=== PATIENT | male | born 1945 | race Caucasian/White ===

== ENCOUNTER 2023-05-03 06:23 | Day surgery (SDC) | payer OTHER, SELFPAY ==
--- NOTE | 2023-05-02 12:28 | HO.ANESPROP2 ---
HPI - Anesthesia Eval Consult details Narrative: 78yo M for Colonoscopy PMFSH Past Medical History Medical History GERD (gastroesophageal reflux disease) Hx of pulmonary fibrosis Interstitial lung disease PVCs (premature ventricular contractions) Surgical History Surgical History H/O colonoscopy Hx of total knee replacement Social History Social History Patient Tobacco Use Status: Former Tobacco user Are you DNR?: No Advance Directives: No Advance Directives Information Provided: Yes Meds Allergies Allergy/AdvReac Type Severity Reaction Status Date / Time No Known Allergies Allergy Verified 05/02/23 07:11 Home Medications Medication Instructions Recorded Confirmed Last Taken Type Cinnamon 05/02/23 Unknown History Imodium A-D 05/02/23 Unknown History fluocinonide 0.05 % topical topical 05/02/23 05/02/23 Unknown History ointment magnesium 200 mg tablet mg 05/02/23 05/02/23 Unknown History nintedanib 150 mg capsule (Ofev) mg PO 05/02/23 Unknown History omeprazole 20 mg capsule,delayed 20 mg PO DAILY 05/02/23 05/02/23 Unknown History release sotalol 80 mg tablet 80 mg PO DAILY 05/02/23 05/02/23 Unknown History zinc 05/02/23 Unknown History Exam Exam Date and Time: May 02, 2023 122 Assessment and Plan Assessment Anesthesia Assessment: Chart Reviewed
[2023-05-03 06:32] VITALS: BP 142/89; PULSE 74; RESP 18; TEMP 36.4; O2SAT 98
[2023-05-03] MEDS: Lactated Ringers 1,000 ML 100 ML IVCONT (06:54)
--- NOTE | 2023-05-03 07:38 | P.HPSUR_ITS ---
Pre-Procedural Eval Section A Date of Service: 05/03/23 Section B Chief Complaint: Encounter for screening for malignant neoplasm of Details of Present Illness: see h&p no changes Relevant Family History (Specify if Yes): No Relevant Social History: None Present Medications: see Short Stay Collaborative assessment Medical History: No relevant PMH History of Previous Operations: No relevant previous surgery Allergies: Allergies Allergy/AdvReac Type Severity Reaction Status Date / Time No Known Allergies Allergy Verified 05/02/23 07:11 Review of Systems Sugical H&P ROS: Negative: Constitution, Cardiovascular, Respiratory, Neurolo gical, Psychiatric, Hem-Onc, Allergic/Immunologic, Gastrointestinal, Genitourinary, Musculoskeletal, Integumentary, Endocrine and Eyes/Ears/Nose/Throat Exam Surgical H&P Exam: Normal: HEENT, Normal: Heart, Normal: Lungs, Normal: Extremities, Normal: Abdomen, Normal: Skin and Normal: Neurological Plan Diagnosis/Plan: Unchanged I have reviewed the history and physical and performed a pertinent physical examination on my patient. No changes have occurred unless specified. Time Spent With Patient Time: Total time managing care of this patient today ____ minutes.
--- NOTE | 2023-05-03 08:03 | HE.ANESPSPN ---
Anesthesia Pain Service Progress Note Assessment: Patient seen and evaluated during pain rounds. Pain control reported as [ ].
--- NOTE | 2023-05-03 08:03 | HO.ANESPROP2 ---
[facility] Past Medical History Medical History GERD (gastroesophageal reflux disease) Hx of pulmonary fibrosis Interstitial lung disease PVCs (premature ventricular contractions) Functional capacity: independent ambulation Surgical History Surgical History H/O colonoscopy Hx of total knee replacement Social History Social History Patient Tobacco Use Status: Former Tobacco user Are you DNR?: No Advance Directives: No Advance Directives Information Provided: Yes Meds Allergies Allergy/AdvReac Type Severity Reaction Status Date / Time No Known Allergies Allergy Verified 05/02/23 07:11 Active Medications: Current Medications Lactated Ringer's (Lr) 1,000 mls @ 100 mls/hr IVCONT .Q10H DANY Last Admin: 05/03/23 06:54 Dose: 100 mls/hr Home Medications Medication Instructions Recorded Confirmed Last Taken Type Cinnamon 05/02/23 Unknown History Imodium A-D 05/02/23 Unknown History fluocinonide 0.05 % topical topical 05/02/23 05/02/23 Unknown History ointment magnesium 200 mg tablet mg 05/02/23 05/02/23 Unknown History nintedanib 150 mg capsule (Ofev) mg PO 05/02/23 Unknown History omeprazole 20 mg capsule,delayed 20 mg PO DAILY 05/02/23 05/02/23 Unknown History release sotalol 80 mg tablet 80 mg PO DAILY 05/02/23 05/02/23 Unknown History zinc 05/02/23 Unknown History Exam Exam Date and Time: May 03, 2023 0803 Height,Weight and Vital Signs: Height 265 ft Weight 120.514 kg Last Vital Signs Temp 97.5 F 05/03/23 06:32 Pulse 74 05/03/23 06:32 Resp 18 05/03/23 06:32 BP 142/89 H 05/03/23 06:32 Pulse Ox 98 05/03/23 06:32 O2 Del Method Room Air 05/03/23 06:32 Airway Mallampati Class: III TM Dist: >3cm Neck ROM: Full Heart: RRR Lungs: CTA Assessment and Plan Final Anesthetic Review ASA Class: III Final Preanesthetic Review: Meds/Allgs Chart Reviewed, Consent Obtained/Reviewed and Anes Risks/Benef Reviewed Patient Risk: Low Procedure Risk: Low Anesthetic Plan Anesthetic Plan: MAC: Disposition: Standard PACU
[2023-05-03 08:06] VITALS: BP 106/64; PULSE 75; RESP 16; TEMP 36.4; O2SAT 94
--- NOTE | 2023-05-03 08:13 | PM.OP ---
Brief Operative Note Date of Service: 05/03/23 Pre-op diagnosis: screening Post-op diagnosis: same Procedure: colonoscopy Surgeon: Kameron Tellez Anesthesia: MAC Was an [employer] used for this Procedure?: No Estimated blood loss (mL): 0 Pathology: none sent Condition: stable Disposition: PACU
[2023-05-03 08:21] VITALS: BP 125/74; PULSE 62; RESP 16; O2SAT 94
[2023-05-03 08:27] VITALS: BMI 37.0
[2023-05-03 08:36] VITALS: BP 149/94; PULSE 70; RESP 16; TEMP 36.1; O2SAT 98
--- NOTE | 2023-05-03 09:12 | OP_ITS ---
DATE OF SERVICE: 05/03/2023 SURGEON: Kameron Tellez MD INDICATIONS: Colon cancer screening and prior history of adenomatous colon polyps. PREOPERATIVE DIAGNOSIS: POSTOPERATIVE DIAGNOSIS: PROCEDURE PERFORMED: Colonoscopy to the terminal ileum. ESTIMATED BLOOD LOSS: COMPLICATIONS: ANESTHESIA: Monitored anesthesia care. ASSISTANTS: SPECIMENS: DESCRIPTION OF PROCEDURE: A history and physical was performed. The risks and benefits of the procedure were explained to the patient. Informed consent was obtained. The patient was placed in the left lateral decubitus position. A digital rectal exam was performed and was found to be normal. The Olympus pediatric video colonoscope was introduced into the rectum and advanced to the cecum. The cecum was identified by transillumination, palpation, and identification of the ileocecal valve. Examination was performed. The scope was removed. He tolerated the procedure well and was returned to the recovery area in stable condition. FINDINGS: The terminal ileum was examined and appeared normal. The visualized colonic mucosa was within normal limits without evidence of masses or ulcers. No polyps were identified. The quality of the prep was good. Retroflex examination showed moderately large internal hemorrhoids. IMPRESSION: Normal colonoscopy. RECOMMENDATION: 1. Follow up as needed. 2. Repeat colonoscopy is optional based on the patient's age. MD HECTOR Yin/ARTURL / [id number]
--- NOTE | 2023-05-03 10:18 | HO.POSTANES ---
Post Anesthesia Evaluation Post Anesthesia Evaluation Date of Service: 05/03/23 Vital Signs: Vital Signs Temp Pulse Resp BP Pulse Ox O2 Del Method 05/03/23 08:36 97.0 F 70 16 149/94 H 98 Room Air 05/03/23 08:21 62 16 125/74 94 Room Air 05/03/23 08:06 97.6 F 75 16 106/64 94 Room Air 05/03/23 06:32 97.5 F 74 18 142/89 H 98 Room Air Mental Status: Awake Pain Control: Satisfactory Nausea/Vomiting: None Hydration: Adequate Anesthesia-Related Issues: No Anes. Related Issues
== END 2023-05-03 08:47 | disposition home or self-care (01) ==
PROVIDERS: Visit Provider Internal Medicine Gastroenterology
PROC: 0DJD8ZZ Inspection of Lower Intestinal Tract, Via Natural or Artificial Opening Endoscopic (ICD-10-PCS; CPT 45378; principal; 2023-05-03 07:30)
DX: Z12.11 Encounter for screening for malignant neoplasm of colon (principal); Z86.010 Personal history of colon polyps; K21.9 Gastro-esophageal reflux disease without esophagitis; J84.10 Pulmonary fibrosis, unspecified; Z87.891 Personal history of nicotine dependence; Z79.899 Other long term (current) drug therapy
CPT/HCPCS: 45378